=== PATIENT | male | born 1985 | race American Indian/Alaskan Native ===

== ENCOUNTER 2017-11-20 22:19 | Emergency (ER) | payer OTHER ==
[2017-11-20 22:57] VITALS: BMI 32.7
[2017-11-20 22:59] VITALS: BP 122/82; PULSE 69; RESP 18; TEMP 98.1; O2SAT 99
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
--- NOTE | 2017-11-21 12:30 | RAD ---
Date of service: 11/20/2017 PROCEDURE: Radiographs of the Chest and Left Ribs. HISTORY: pain COMPARISON: None available. TECHNIQUE: Frontal radiograph of the chest and multiple oblique radiographs of the left ribs were obtained. FINDINGS: LEFT RIBS: No fracture or focal lesion visualized. LUNGS: Clear. PLEURA: No pneumothorax or pleural fluid. CARDIOVASCULAR: Normal sized heart. No pulmonary vascular congestion. OTHER FINDINGS: None. IMPRESSION: Unremarkable radiographs of the chest and left ribs. No left rib fracture.
--- NOTE | 2017-11-21 12:31 | RAD ---
Date of service: 11/20/2017 PROCEDURE: Radiographs of the Left Shoulder HISTORY: pain s/p fall COMPARISON: No prior. FINDINGS: BONES: Normal. No fracture. JOINTS: Normal. Glenohumeral and acromioclavicular joints preserved. No osteoarthritis. SOFT TISSUES: Normal. OTHER FINDINGS: None. IMPRESSION: Normal radiographs of the left shoulder.
== END 2017-11-21 00:30 | disposition home or self-care (01) ==
LOC: ED 22:19 → MERGE 22:19 → ED 11-21 00:30
DX: S20.219A Contusion of unspecified front wall of thorax, initial encounter (principal); V29.9XXA Motorcycle rider (driver) (passenger) injured in unspecified traffic accident, initial encounter; M25.512 Pain in left shoulder